=== PATIENT | female | born 1980 | race Caucasian/White ===

== ENCOUNTER 2017-12-20 06:11 | Emergency (ER) | payer SELFPAY ==
[2017-12-20] MEDS ORDERED: Sodium Chloride 0.9% 10 ML Syringe FLUSH PRN (06:38)
[2017-12-20] MEDS ORDERED: LORazepam 2 MG/ML SDV IVPUSH ONE (06:39)
[2017-12-20] MEDS ORDERED: cloNIDine 0.1 MG Tab PO ONE (06:39)
[2017-12-20] MEDS ORDERED: Sodium Chloride 0.9% 1,000 ML IV SCH (06:45)
--- NOTE | 2017-12-20 06:46 | EDM.PDOCBH ---
ED HPI GENERAL MEDICAL PROBLEM - General Chief Complaint: Drug or Alcohol Abuse Stated Complaint: DETOX Time Seen by Provider: 12/20/17 06:27 Source of Information: Reports: Patient History Limitations: Reports: No Limitations - History of Present Illness INITIAL COMMENTS - FREE TEXT/NARRATIVE: The patient presents for fentanyl withdrawals. She has been using fentanyl after a miscarriage 3 months ago. She did a medical detox in [place] 1 week ago. She is on her way back to [place] and she started using again. She used fentanly yesterday at 8:30. She stopped in [place] early this morning at 2am to get a room but she could not sleep. She feels anxious and has some cramping but no nausea yet. Her blood pressure is elevated. She has no other medical problems. She also has some palpitations. Onset: Gradual Duration: Hour(s): Location: Reports: Abdomen Quality: Reports: Other (Cramping) Severity: Mild Improves with: Reports: None Worsens with: Reports: None Associated Symptoms: Reports: No Other Symptoms Back Pain Score (Numeric/FACES): 7 - Related Data Allergies Allergy/AdvReac Type Severity Reaction Status Date / Time Penicillins Allergy Hives Verified 12/20/17 06:24 Home Meds: Home Meds LORazepam [Ativan] 1 mg PO Q8HR PRN #12 tablet 12/20/17 [Rx] Ondansetron [Zofran ODT] 4 mg PO Q6H PRN #20 tab.dis 12/20/17 [Rx] cloNIDine [Catapres] 0.1 mg PO Q8H PRN #20 tab 12/20/17 [Rx] Past Medical History [employer] History: Reports: , Spontaneous Psychiatric History: Reports: Addiction, Anxiety - Past Surgical History GI Surgical History: Reports: Cholecystectomy Social & Family History - Family History Family Medical History: Noncontributory - Tobacco Use Smoking Status *Q: Light Tobacco Smoker Years of Tobacco use: 20 Packs/Tins Daily: 0.5 Second Hand Smoke Exposure: No - Caffeine Use Caffeine Use: Reports: Coffee - Alcohol Use Days Per Week of Alcohol Use: 1 Number of Drinks Per Day: 1 Total Drinks Per Week: 1 - Recreational Drug Use Recreational Drug Use: Yes Drug Use in Last 12 Months: Yes Recreational Drug Type: Reports: Cocaine, Fentanyl, Oxycodone, Vicodin Recreational Drug Use Frequency: Daily ED ROS GENERAL - Review of Systems Review Of Systems: See Below Constitutional: Reports: No Symptoms HEENT: Reports: No Symptoms Respiratory: Reports: No Symptoms Cardiovascular: Reports: Palpitations Endocrine: Reports: No Symptoms GI/Abdominal: Reports: Abdominal Pain (Cramping) : Reports: No Symptoms Musculoskeletal: Reports: No Symptoms ED EXAM, BEHAVIORAL HEALTH - Physical Exam Exam: See Below Exam Limited By: No Limitations General Appearance: Alert, No Apparent Distress Ears: Normal External Exam Nose: Normal Inspection Head: Atraumatic, Normocephalic Neck: Normal Inspection Respiratory/Chest: No Respiratory Distress, Lungs Clear, Normal Breath Sounds Cardiovascular: Regular Rate, Rhythm, No Edema, No Murmur GI/Abdominal: Soft, Non-Tender, No Organomegaly, No Mass Back Exam: Normal Inspection Extremities: Normal Inspection Neurological: Alert, No Motor/Sensory Deficits, Oriented x 3 COURSE, BEHAVIORAL HEALTH COMP - Course Vital Signs: Last Vital Signs Temp 98.5 F 12/20/17 06:18 Pulse 53 L 12/20/17 06:18 Resp 17 12/20/17 06:18 BP 159/90 H 12/20/17 06:56 Pulse Ox 100 12/20/17 06:18 Orders, Labs, Meds: Active Orders 24 hr Category Date Time Status Cardiac Monitoring [RC] . DIRECTED Care 12/20/17 06:38 Active Peripheral IV Care [RC] . DIRECTED Care 12/20/17 06:38 Active COMPREHENSIVE METABOLIC PN,CMP [CHEM] Stat Lab 12/20/17 06:45 Received DRUG SCREEN, URINE [URCHEM] Stat Lab 12/20/17 06:38 Ordered ETHANOL BLOOD MEDICAL [CHEM] Stat Lab 12/20/17 06:45 Received HCG QUALITATIVE,SERUM [CHEM] Stat Lab 12/20/17 06:45 Received Sodium Chloride 0.9% [Normal Saline] 1,000 ml Med 12/20/17 06:45 Active IV .BOLUS Sodium Chloride 0.9% [Saline Flush] Med 12/20/17 06:38 Active 10 ml FLUSH ASDIRECTED PRN Peripheral IV Insertion Adult [OM.PC] Stat Oth 12/20/17 06:38 Ordered Medication Orders Sodium Chloride (Normal Saline) 1,000 mls @ 1,000 mls/hr IV .BOLUS ELIZABETH Last Admin: 12/20/17 06:57 Dose: 1,000 mls/hr Sodium Chloride (Saline Flush) 10 ml FLUSH ASDIRECTED PRN PRN Reason: Keep Vein Open Last Admin: 12/20/17 06:57 Dose: 10 ml Laboratory Tests 12/20/17 Range/Units 06:45 WBC 8.21 (3.98-10.04) K/mm3 RBC 4.95 (3.98-5.22) M/mm3 Hgb 14.2 (11.2-15.7) gm/L Hct 43.0 (34.1-44.9) % MCV 86.9 (79.4-94.8) fl MCH 28.7 (25.6-32.2) pg MCHC 33.0 (32.2-35.5) g/dl RDW Std Deviation 43.8 (36.4-46.3) fL Plt Count 290 (182-369) K/mm3 MPV 11.3 (9.4-12.3) fl Neut % (Auto) 68.6 (34.0-71.1) % Lymph % (Auto) 21.8 (19.3-51.7) % [place] % (Auto) 8.4 (4.7-12.5) % Eos % (Auto) 0.6 L (0.7-5.8) Baso % (Auto) 0.5 (0.1-1.2) % Neut # (Auto) 5.63 (1.56-6.13) K/mm3 Lymph # (Auto) 1.79 (1.18-3.74) K/mm3 [place] # (Auto) 0.69 H (0.24-0.36) K/mm3 Eos # (Auto) 0.05 (0.04-0.36) K/mm3 Baso # (Auto) 0.04 (0.01-0.08) K/mm3 Medications Generic Name Dose Route Start Last Admin Trade Name Freq PRN Reason Stop Dose Admin Sodium Chloride 1,000 mls @ 1,000 mls/hr 12/20/17 06:45 12/20/17 06:57 Normal Saline IV 1,000 mls/hr .BOLUS ELIZABETH Administration Sodium Chloride 10 ml 12/20/17 06:38 12/20/17 06:57 Saline Flush FLUSH 10 ml ASDIRECTED PRN Administration Keep Vein Open Discontinued Medications Generic Name Dose Route Start Last Admin Trade Name Froy PRN Reason Stop Dose Admin Clonidine HCl 0.1 mg 12/20/17 06:39 12/20/17 06:56 Catapres PO 12/20/17 06:40 0.1 mg ONETIME ONE Administration Lorazepam 1 mg 12/20/17 06:39 12/20/17 06:56 Ativan IVPUSH 12/20/17 06:40 1 mg ONETIME ONE Administration Re-Assessment/Re-Exam: I ordered an IV NS 1L bolus, catapress 0.1mg PO, ativan 1mg IV and labs. Departure - Departure Time of Disposition: 19:10 Disposition: Home, Self-Care 01 Condition: Good Clinical Impression: Opioid withdrawal - Discharge Information Prescriptions: LORazepam [Ativan] 1 mg PO Q8HR PRN #12 tablet PRN Reason: Anxiety cloNIDine [Catapres] 0.1 mg PO Q8H PRN #20 tab PRN Reason: Withdrawal Symptoms Ondansetron [Zofran ODT] 4 mg PO Q6H PRN #20 tab.dis PRN Reason: Nausea\vomiting Referrals: PCP,None [Primary Care Provider] - Additional Instructions: Take the medication as prescribed for withdrawal symptoms Drink plenty of fluids. Please return if you are worse. - My Orders Last 24 Hours: My Active Orders 12/20/17 06:38 Cardiac Monitoring [RC] . DIRECTED Peripheral IV Care [RC] . DIRECTED DRUG SCREEN, URINE [URCHEM] Stat Sodium Chloride 0.9% [Saline Flush] 10 ml FLUSH ASDIRECTED PRN Peripheral IV Insertion Adult [OM.PC] Stat 12/20/17 06:45 COMPREHENSIVE METABOLIC PN,CMP [CHEM] Stat ETHANOL BLOOD MEDICAL [CHEM] Stat HCG QUALITATIVE,SERUM [CHEM] Stat Sodium Chloride 0.9% [Normal Saline] 1,000 ml IV .BOLUS - Assessment/Plan Last 24 Hours: My Active Orders 12/20/17 06:38 Cardiac Monitoring [RC] . DIRECTED Peripheral IV Care [RC] . DIRECTED DRUG SCREEN, URINE [URCHEM] Stat Sodium Chloride 0.9% [Saline Flush] 10 ml FLUSH ASDIRECTED PRN Peripheral IV Insertion Adult [OM.PC] Stat 12/20/17 06:45 COMPREHENSIVE METABOLIC PN,CMP [CHEM] Stat ETHANOL BLOOD MEDICAL [CHEM] Stat HCG QUALITATIVE,SERUM [CHEM] Stat Sodium Chloride 0.9% [Normal Saline] 1,000 ml IV .BOLUS
== END 2017-12-20 08:40 | disposition home or self-care (01) ==
LOC: JD.ED 06:11
DX: F11.23 Opioid dependence with withdrawal (principal); F17.210 Nicotine dependence, cigarettes, uncomplicated; Z88.0 Allergy status to penicillin
CPT/HCPCS: 36415; 80053; 80306; 84703; 85025; 96361; 96374; 99284; A9270; G0480; J2060; J7040; J7050